=== PATIENT | male | born 1975 | race Caucasian/White ===

== ENCOUNTER 2024-09-07 07:03 | Day surgery (SDC) | payer BC ==
[~2024-09-07] VITALS: Ht 182.9 cm; Wt 108.2 kg
[2024-09-07] VITALS (20 sets, daily range): BP systolic 107–155; BP diastolic 64–101
[~2024-09-07 07:03] MED LIST: LOSA50 PO; Lactated Ringer's 1,000 ML IV ONE; Lactated Ringer's 1,000 ML IV SCH; propofoL 40 ML IV ONE
--- NOTE | 2024-09-07 07:37 | NUR ---
PRE-OP PT AMBULATING INTO DAY SX. PT VITAL SIGNS TAKEN AND ECG SHOWING ST DEPRESSION. REALTIME PRINT OUT OF RYTHYM TAKEN TO DR. BENZ. DUE TO NO SYMPTOMS OF CHEST PAIN OR SOB BY PT WHEN ASSESSED BY THIS RN NO FURTHER TEST ORDERED AT THIS TIME. 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
[2024-09-07] MEDS ORDERED: Midazolam HCl 1MG / ML 2ML Vial ONE (08:09)
--- NOTE | 2024-09-07 08:09 | NUR ---
09/07/24 0809 Nava French CONFIRMED AND REVIEWED H&P, MEDCICATIONS, ALLERGIES, MEDICAL HISTORY, RESPIRATORY HISTORY, VITAL SIGNS, 3-LEAD EKG, CONSENTS, AND PHYSICIAN ORDERS. PATIENT CONFIRMS NPO STATUS AND AGREES WITH SCHEDULED PROCEDURE. MONITOR INTACT WITH CONTINUOUS PULSE OXIMETRY, CAPNOGRAPHY, 3-LEAD EKG, INTERMITTENT BP. SUPPLEMENTAL O2 TO BE TITRATED THROUGHOUT PROCEDURE TO MAINTAIN O2 SATURATION ABOVE 90%. PATIENT DETERMINED TO BE ASA APPROPRIATE FOR PROPOFOL SEDATION PRIOR TO START OF PROCEDURE BY DR. BENZ
--- NOTE | 2024-09-07 08:47 | NUR ---
REPORT RECEIVED FROM KAMRON QUINTERO. VSS. PT ON RA. PT A&OX4. PT ABLE TO REPOSITION SELF IN BED. PT DENIES PAIN, NAUSEA OR OTHER DISCOMFORTS.
--- NOTE | 2024-09-07 09:08 | NUR ---
Patient up to Ambulate independently. Gait steady. VSS AND CONSISTENT WITH PT BASELINE. PT HAS NO COMPLAINTS AND VERBALIZES READINESS TO GO HOME. Discharge instructions reviewed with patient AND HIS . Patient AND verbalize understanding. Copy given to patient to take home. Patient States Post-Procedure ride home has been arranged. Discharged via wheelchair to private car for ride home. PT BELONGINGS RETURNED TO PT.
== END 2024-09-07 09:09 | disposition home or self-care (01) ==
LOC: ORSCMMR 07:03 → ORD 08:00 → ORSCMMR 08:00
PROVIDERS: Internal Medicine Gastroenterology
PROC: 0DBH8ZX Excision of Cecum, Via Natural or Artificial Opening Endoscopic, Diagnostic (ICD-10-PCS; principal; 2024-09-07 08:00)
PROC: 0DBN8ZX Excision of Sigmoid Colon, Via Natural or Artificial Opening Endoscopic, Diagnostic (ICD-10-PCS; principal; 2024-09-07 08:00)
PROC: 3E0H8KZ Introduction of Other Diagnostic Substance into Lower GI, Via Natural or Artificial Opening Endoscopic (ICD-10-PCS; principal; 2024-09-07 08:00)
PROC: 0DBM8ZX Excision of Descending Colon, Via Natural or Artificial Opening Endoscopic, Diagnostic (ICD-10-PCS; principal; 2024-09-07 08:00)
PROC: 0DBL8ZX Excision of Transverse Colon, Via Natural or Artificial Opening Endoscopic, Diagnostic (ICD-10-PCS; principal; 2024-09-07 08:00)
DX: Z12.11 Encounter for screening for malignant neoplasm of colon (principal); C18.7 Malignant neoplasm of sigmoid colon; D12.4 Benign neoplasm of descending colon; D12.3 Benign neoplasm of transverse colon; D12.0 Benign neoplasm of cecum; I10 Essential (primary) hypertension; Z79.899 Other long term (current) drug therapy
CPT/HCPCS: 88305; J2250; J2704; J7120

== ENCOUNTER 2024-09-30 12:15 | Inpatient (IN) | payer BC ==
[~2024-09-30] VITALS: Ht 177.8 cm; Wt 102.8 kg
[~2024-09-30 12:15] MED LIST changes: +ATOR20 PO; -Lactated Ringer's 1,000 ML IV ONE; -Lactated Ringer's 1,000 ML IV SCH; +Vitamin D1000 UNI1 PO; -propofoL 40 ML IV ONE
[2024-10-10] VITALS (21 sets, daily range): BP systolic 93–146; BP diastolic 61–95
[2024-10-10] MEDS ORDERED: Acetaminophen 500 MG Tab PO SCH (06:20)
[2024-10-10] MEDS ORDERED: Lactated Ringer's 1,000 ML IV SCH (06:20)
[2024-10-10] MEDS ORDERED: CeFAZolin Sodium 2,000 MG in NS 100 ML IV SCH (06:20)
[2024-10-10] MEDS ORDERED: Heparin Sodium,Porcine 5,000 UNIT/0.5 ML SDV SC SCH (06:25)
[2024-10-10] MEDS ORDERED: MetroNIDAZOLE 500MG/NS 100 ml 100 ML IV ONE (06:30)
[2024-10-10] MEDS ORDERED: METR500 PO (06:52)
[2024-10-10] MEDS ORDERED: [UNRECOGNIZED DRUG - CODE] PO (06:52)
[2024-10-10] MEDS ORDERED: TURMERIC500 M2 PO (06:53)
[2024-10-10] MEDS ORDERED: Lipitor20 MG PO (06:53)
[2024-10-10] MEDS ORDERED: THERA-D2000 UNIT PO (06:53)
[2024-10-10] MEDS ORDERED: Calcium Carbon500 MG PO (06:54)
[2024-10-10] MEDS ORDERED: ZINC50 M3 PO (06:54)
[2024-10-10] MEDS ORDERED: Bupivacaine 0.5% HCl 5 MG/ML 30MLVIAL ONE (07:07)
[2024-10-10] MEDS ORDERED: propofoL 20 ML IV ONE (07:18)
[2024-10-10] MEDS ORDERED: Ondansetron HCl 2 MG / ML 2ML Vial ONE (07:18)
[2024-10-10] MEDS ORDERED: Sugammadex Sodium 200 MG/2ML SDV (100 MG/ML) ONE (07:18)
[2024-10-10] MEDS ORDERED: Dexamethasone Sod Phos 10 MG/ML 1ML VIAL ONE (07:18)
[2024-10-10] MEDS ORDERED: Rocuronium Bromide 10 MG/ML 5ML Injection IV ONE ×3 (07:18→10:15)
[2024-10-10] MEDS ORDERED: Lidocaine HCl 2% 20 ML MDV ONE (07:18)
[2024-10-10] MEDS ORDERED: FentaNYL Citrate 50 MCG/ML 2 ML Injection ONE ×3 (07:18→12:11)
[2024-10-10] MEDS ORDERED: Midazolam HCl 1MG / ML 2ML Vial ONE (07:29)
[2024-10-10] MEDS ORDERED: Heparin Sodium 5000 Units/ML 1ML MDV ONE (07:33)
[2024-10-10] MEDS ORDERED: Heparin Sodium 10,000 Units/ML 1ML MDV ONE (07:37)
[2024-10-10] MEDS ORDERED: Heparin Sodium 5000 Units/ML 1ML MDV SC SCH ×2 (07:40)
[2024-10-10] MEDS ORDERED: Dexmedetomidine HCL 200 MCG / 2 ML ONE (08:15)
--- NOTE | 2024-10-10 08:15 | NUR ---
History, Chart, Medications and Allergies reviewed before start of procedure. Patient up to Ambulate independently. Gait steady. Pre-Op teaching done. Pt verbalizes understanding. Patient confirms NPO status and agrees with scheduled surgery. Patient reports completing Chlorhexadine shower X2 prior to admission to hospital. Surgical site prepped with 2% Chlorhexidine cloth wipe. Lungs clear T/O to Auscultation. Patient states colon prep results clear.
[2024-10-10] MEDS ORDERED: Phenylephrine HCl 100 MCG/ML-NS 10MLSYR (1MG/10ML) ONE (08:22)
[2024-10-10] MEDS ORDERED: OxyCODONE HCL 5 MG TAB PO PRN (11:55)
[2024-10-10] MEDS ORDERED: FLU VACC TS2024-25(6MOS UP)/PF 45 MCG/0.5 ML SYRINGE IM PRN (11:55)
[2024-10-10] MEDS ORDERED: Ondansetron HCl 2 MG / ML 2ML Vial IV PRN (11:55)
[2024-10-10] MEDS ORDERED: HYDROmorphone HCl/Pf 1MG SYR IV PRN (11:55)
[2024-10-10] MEDS ORDERED: Acetaminophen 325 MG TABLET PO SCH (12:00)
--- NOTE | 2024-10-10 13:42 | NUR ---
ARRIVAL TO UNIT PT ARRIVED TO UNIT FROM PACU, SLID VIA SLIDER SHEET. PT TOLERATED WELL. LAP SITES X4 CDI WITH WOUND GLUE. REPORTED PAIN INTITALLY 4/10 AND TOLERABLE. HAS SINCE CLIMBED AND PT MEDICATED PER EMAR. DENIES NAUSEA. K-PAD PROVIDED FOR COMFORT. SPOUSE AT BEDSIDE. PARKER PATENT AND DRAINING. EDUCATED PT ON CLEAR LIQUID DIET AND HE IS AGREEABLE.
--- NOTE | 2024-10-10 13:58 | NUR ---
After several visits with the patient's spouse, Isela, while the patient was in surgery, I visited with the patient and with Isela in rm [id number]. The patient was in a upbeat mood but also was tearful as he expressed his gratitude for being on the otherside of the surgery, for God's love and strength and for the medical team who were so kind and excellent before, during and after the surgery. I along with [employer]visormaye levy provided prayer and encouragement with good effect for both Isela and the patient as they should signs of greater peace. Spiritual care will continue to remain available.
--- NOTE | 2024-10-10 17:57 | NUR ---
SHIFT SUMMARY SINCE ARRIVAL TO UNIT PT REPORTS PAIN WELL CONTROLLED AT THIS TIME. JUST REPORTS A DISCOMFORT. TOLERATING CLEAR LIQUIDS, DENIES NAUSEA. PARKER PATENT AND DRAINING, PLAN IS TO REMOVE IN THE AM. LAP SITES REMAIN CDI. PT CALLS APPROPRIATLY.
[2024-10-10] MEDS ORDERED: Docusate Sodium 100 MG Cap PO SCH (21:00)
--- NOTE | 2024-10-11 04:00 | NUR ---
SHIFT SUMMARY: PATIENT ABLE TO SLEEP IN LONG INTERVALS. GIVEN PRN OXYCODONE ONCE. PARKER DRAINING LIGHT YELLOW URINE. WILL BE DC'D THIS MORNING. ROOM AIR.
[2024-10-11 04:13] VITALS: BP 114/69
[2024-10-11 05:28] LABS: Mean Corpuscular HGB 32.5 pg (26.0-34.0); Mean Corpuscular HGB Conc 34.1 g/dL (31.5-36.5); Mean Corpuscular Volume 95 fL (80-100); Mean Platelet Volume 10.3 fL (9.1-12.4); Platelet Count 218 K/mm3 (150-400); RDW Coefficient Variation 12.2 % (11.7-14.2); RDW Standard Deviation 42.9 fL (35.1-46.3); Red Blood Cell Count 4.62 M/mm3 (4.30-5.90)
[2024-10-11 05:52] LABS: Magnesium, Blood 2.3 mg/dL (1.6-2.4)
[2024-10-11 05:53] LABS: Bun/Creatinine Ratio 12.7 (12.0-20.0); Calcium, Blood 8.6 mg/dL (8.5-10.1); Creatinine, Blood 0.87 mg/dL (0.60-1.20); Potassium, Blood 3.8 mmol/L (3.5-5.5)
[2024-10-11 07:28] VITALS: BP 125/79
[2024-10-11 07:30] VITALS: BP 125/79
--- NOTE | 2024-10-11 08:41 | NUR ---
Patient is lying in bed and alert. He shares about the journey of the last month of being faced with heart and cancer issues and the mental, emotional and spiritual process. I listened emapthically and provided scripture reading and prayer. Patient responded well and showed signs of increased peace.
[2024-10-11] MEDS ORDERED: Enoxaparin 40 MG/0.4 ML SYR SC SCH (09:00)
[2024-10-11 14:46] VITALS: BP 118/70
[2024-10-11] MEDS ORDERED: Acetaminophen650 M1 PO (16:24)
[2024-10-11] MEDS ORDERED: OXYC5 PO (16:24)
--- NOTE | 2024-10-11 17:55 | NUR ---
DISCHARGE SUMMARY POD1 LAP COLECTOMY, A/OX4, VSS, TOLERATING REGULAR DIET, PAIN WELL CONTROLLED WITH ORAL PAIN MEDICATIONS PER EMAR, ABLE TO GET UP AND AMBULATIN IN AND AROUND HIS ROOM, VOIDING INDEPENDENTLY, PASSING FLATUS. DISCUSSED DISCHARGE INFORMATION WITH HIM INCLUDING HOME CARE, MEDICATIONS, AND FOLLOW UP APPOINTMNETS. IV ACCESS REMOVED DURING DC INSTRUCTIONS. PT TOOK A SHOWER BEFORE GETTING DRESSED INDEPENDENTLY, ESCORTED OUT VIA WC TO PRIVATE AUTO TO GO HOME.
== END 2024-10-11 17:57 | disposition home or self-care (01) | DRG 333 ==
LOC: PRE IP 12:15 → MEDS 10-10 06:24 → SURS 10-10 06:24
PROVIDERS: ADMIT Surgery
PROC: 8E0W4CZ Robotic Assisted Procedure of Trunk Region, Percutaneous Endoscopic Approach (ICD-10-PCS; 2024-10-10)
PROC: 0DBP4ZZ Excision of Rectum, Percutaneous Endoscopic Approach (ICD-10-PCS; principal; 2024-10-10 07:30)
DX: C20 Malignant neoplasm of rectum (principal); Q43.8 Other specified congenital malformations of intestine; I10 Essential (primary) hypertension
CPT/HCPCS: 36415; 80048; 83735; 85027; A9270; J0690; J1100; J1171; J1644; J1650; J2250; J2371; J2405; J2704; J3010; J7120

== ENCOUNTER 2025-06-19 07:56 | Day surgery (SDC) | payer BC ==
[~2025-06-19 07:56] MED LIST changes: +Acetaminophen650 M1 PO; +Calcium Carbon500 MG PO; +Lipitor20 MG PO; +METR500 PO; +OXYC5 PO; +THERA-D2000 UNIT PO; +TURMERIC500 M2 PO; +ZINC50 M3 PO; +[UNRECOGNIZED DRUG - CODE] PO
== END 2025-06-19 23:00 | disposition home or self-care (01) ==
LOC: CT 07:56
DX: I42.0 Dilated cardiomyopathy (principal); I25.10 Atherosclerotic heart disease of native coronary artery without angina pectoris; I11.9 Hypertensive heart disease without heart failure; E78.5 Hyperlipidemia, unspecified; Z79.82 Long term (current) use of aspirin; Z79.899 Other long term (current) drug therapy
CPT/HCPCS: 75574; Q9967

== ENCOUNTER 2025-07-18 06:13 | Day surgery (SDC) | payer BC ==
[~2025-07-18] VITALS: Ht 177.8 cm; Wt 105.0 kg
[2025-07-18] VITALS (7 sets, daily range): BP systolic 121–144; BP diastolic 78–96
[~2025-07-18 06:13] MED LIST changes: +AMLO5 PO; +Aspir 8181 MG PO; +CARV3.125 PO
[2025-07-18] MEDS ORDERED: NS 1,000 ML IV ONE ×2 (06:56→06:58)
[2025-07-18] MEDS ORDERED: Heparin Sodium 1000 Units/ML 10ML MDV ONE ×2 (06:56→06:58)
[2025-07-18] MEDS ORDERED: NS 250 ML IV ONE (06:56)
[2025-07-18] MEDS ORDERED: Verapamil HCL 2.5 MG/ML 2ML Injection ONE (06:57)
[2025-07-18] MEDS ORDERED: Nitroglycerin 2 MG/20 ML BTL ONE (06:57)
[2025-07-18] MEDS ORDERED: Midazolam HCl 1MG / ML 2ML Vial ONE (07:27)
[2025-07-18] MEDS ORDERED: FentaNYL Citrate 50 MCG/ML 2 ML Injection ONE (07:27)
--- NOTE | 2025-07-18 08:20 | NUR ---
PATIENT ARRIVED BACK TO RECOVERY ROOM SITTING UPRIGHT IN RECLINER. RIGHT RADIAL SITE C/D/I SOFT/NONTENDER, NO EVIDENCE OF BLEEDING. VSS ON RA.
--- NOTE | 2025-07-18 08:28 | NUR ---
PATIENT SITTING UPRIGHT IN RECLINER TOLERATING PO INTAKE WELL. VSS ON RA. RIGHT RADIAL TR BAND C/D/I SOFT/NONTENDER, NO EVIDENCE OF BLEEDING. GOOD PLEUTH WAVE PRESENT. PATIENT DENYING ANY PAIN.
--- NOTE | 2025-07-18 09:05 | NUR ---
INITIAL 2 CC OF AIR REMOVED FROM RIGHT RADIAL TR BAND. SITE C/D/I SOFT/NONTENDER, NO EVIDENCE OF BLEEDING. VSS ON RA. PATIENT DENYING ANY PAIN. PRESENT AT BEDSIDE
--- NOTE | 2025-07-18 09:27 | NUR ---
ALL AIR REMVOED FROM RIGHT RADIAL TR BAND. SITE C/D/I SOFT/NONTENDER, NO EVIDENCE OF BLEEDING. PATIENT DENYING ANY CP. PATIENT TOLERATING PO INTAKE WELL. SPOUSE PRESENT AT BEDSIDE. DISCHARGE INSTRUCTIONS REVIEWED, NO CHANGES TO MEDICATIONS. VSS ON RA.
--- NOTE | 2025-07-18 10:20 | NUR ---
PATIENT DISCHARGED HOME AT THIS TIME. PIV REMOVED WITHOUT DIFFICULTY, CATHETER INTACT. TR BAND REMOVED, CLOTH DOT AND ARM BOARD IN PLACE. SITE C/D/I SOFT/NONTENDER. NO EVIDENCE OF BLEEDING. VSS ON RA. DISCHARGE INSTRUCTIONS REVIEWED. PATIENT WHEELED TO HOSPITAL ENTRANCE. ALL PATIENT BELONGINGS AND PAPERWORK LEFT WITH PATIENT. SPOUSE ABLE TO PROVIDE TRANSPORTATION HOME.
== END 2025-07-18 10:20 | disposition home or self-care (01) ==
LOC: MHTC 06:13
DX: I25.10 Atherosclerotic heart disease of native coronary artery without angina pectoris (principal); I42.0 Dilated cardiomyopathy; I44.7 Left bundle-branch block, unspecified; I10 Essential (primary) hypertension; E78.5 Hyperlipidemia, unspecified; Z79.899 Other long term (current) drug therapy
CPT/HCPCS: 76937; 93458; 99152; 99153; C1769; C1887; C1894; J1644; J2250; J3010; J7030; J7050; Q9967